=== PATIENT | female | born 1965 | race Caucasian/White ===

== ENCOUNTER → 2022-02-09 | Day surgery (SDC) | payer SELFPAY, OTHER | END | disposition home or self-care (01) | LOC: PAT 05-09 14:08 | PROVIDERS: PCP Family Medicine; Referring Provider Student in an Organized Health Care Education/Training Program; Visit Provider Student in an Organized Health Care Education/Training Program | DX: Z01.818 Encounter for other preprocedural examination (principal) ==

== ENCOUNTER 2022-02-14 16:50 | Observation (INO) | payer SELFPAY, OTHER ==
[2022-02-14 14:39] VITALS: BP 160/80; PULSE 125; RESP 18; TEMP 36.6; O2SAT 99; BMI 35.6
--- NOTE | 2022-02-14 18:07 | PCM.HP.STD ---
HPI - General General Date of Admission: 02/14/22 HPI Narrative JACKELYN ANGEL, is a 56 F seen in the outpatient setting for pathologic right humeral shaft fracture sustained 01/17/2022. She has been evaluated and diagnosed with multiple myeloma. She follows with an oncologist, Dr. Tracy. I saw the patient in the outpatient setting. I recommended surgical intervention in the form of right humeral intramedullary nailing. Surgery was scheduled for 02/15/2022. Preoperative evaluation revealed abnormal electrolytes with a significant hyperkalemia. I recommended admission for further work-up and treatment to optimize her electrolytes prior to surgery in hopes to avoid delaying timely treatment of her fracture. At time of my examination patient states her pain is adequately controlled in her right humerus. She denies any fevers, chills, nausea or vomiting, chest pain, shortness of breath, palpitation, abdominal pain, constipation or diarrhea. [facility] Medical History Anemia Cancer Leg cramps Multiple myeloma Non-smoker Thyroid nodule Wears glasses Home Medications acyclovir 400 mg tablet 400 mg PO BID 02/09/22 [History Last Taken Unknown] apixaban 2.5 mg tablet (Eliquis) 2.5 mg PO BID 02/09/22 [History Last Taken Unknown] aspirin 81 mg tablet,delayed release 81 mg PO DAILY 02/09/22 [History Last Taken Unknown] Allergy/AdvReac Type Severity Reaction Status Date / Time No Known Allergies Allergy Verified 02/14/22 14:39 Surgical History (Updated 02/09/22 @ 11:17 by Yola Martinez) History of left hip replacement Social History Smoking Status: Never smoker ROS ROS Narrative 12 point review of systems obtained, negative unless otherwise noted HPI. Vital Signs Vital Signs Vital Signs: 02/14/22 14:39 Temperature 97.8 F Temperature Source Temporal Pulse Rate 125 H Respiratory Rate 18 Blood Pressure 160/80 H Blood Pressure Mean 106 Pulse Ox 99 Oxygen Delivery Method Room Air Weight Weight: 201 lb 3.2 oz Body Mass Index (BMI) 35.6 Physical Exam Narrative General -A&Ox3, NAD, appears stated age. Vital signs stable, afebrile. Respiratory -normal work of breathing, no intercostal retractions. CV -pulses regular, brisk capillary refill ?4 limbs. Abdomen-soft, nontender, nondistended. No guarding, rigidity, rebound tenderness. Musculoskeletal/neurologic -full range of motion nontender throughout bilateral lower extremities, left upper extremity with full sensation and strength in all dermatomes and myotomes. No midline cervical tenderness. Right upper extremity-posterior splint in place, clean dry and intact. Cardinal motions right hand are intact. Motor intact in axillary, musculocutaneous, radial, ulnar, and median nerve distributions. Sensation intact in all dermatomes of the right upper extremity. Radial pulses 2+ brisk upper refill in the fingertips. Results Lab / Micro Data Labs: Laboratory Results - last 24 hr 02/14/22 13:16: TSH Cancelled, Free T4 Cancelled Assessment & Plan Assessment/Plan (1) Pathological fracture, right humerus, sequela: PLAN: Plan for surgery tomorrow as previously scheduled. Patient admitted for preoperative hyperkalemia. CBC and BMP ordered. If hyperkalemic, medical consult planned this evening. N.p.o. after midnight Maintenance IV fluids ordered
[2022-02-14 19:09] LABS: Absolute Lymphocyte Count 1.02 X10^3/uL (0.83-4.51); Absolute Neutrophil Count 3.3 X10^3/uL (2.0-7.7); Basophil# 0.02 X10^3/uL; Basophil% 0.4 % (0-1); Eosinophil# 0.01 X10^3/uL; Eosinophils% 0.2 % (0-5); Hematocrit 29.5 % (37-47); Hemoglobin 9.5 g/dL (12.0-15.0); Lymphocyte # 1.02 X10^3/ul (0.83-4.51); Lymphocyte % 21.3 % (19-41); Mean Corp Hgb Conc 32.2 g/dL (32-36); Mean Corpuscular Hgb 29.9 pg (27.0-32.0); Mean Corpuscular Volume 92.8 fL (81-99); Mean Platelet Vol. 9.7 fl (6.2-12.0); Monocyte# 0.48 X10^3/uL; NRBC Flagged by Analyzer 0 % (0-5); Neutrophil # 3.26 X10^3/uL (2.7-7.7); Neutrophil % 67.9 % (47-70); Platelet Count 251 K/mm3 (150-450); RBC Distribution Width SD 51.5 fl (35.1-43.9); Red Blood Count 3.18 M/mm3 (4.2-5.4); White Blood Count 4.8 K/mm3 (4.4-11.0)
[2022-02-14] MEDS: 0.9% Normal Saline 1,000 ML 125 ML IV (19:09)
[2022-02-14 19:14] VITALS: BP 138/75; PULSE 107; RESP 16; TEMP 37.3; O2SAT 95
[2022-02-14 19:23] LABS: Anion Gap 6 (5-15); BUN 14 mg/dL (7-18); BUN/Creat Ratio 15.4 RATIO (10-20); Calcium,Total 8.4 mg/dL (8.5-10.1); Chloride 102 mmol/L (98-107); Creatinine, Serum 0.91 mg/dL (0.55-1.02); EST Glomerular Filtration Rate 68 mL/min (>60); Est Glom Filt Rate - Afr Amer 82 mL/min (>60); Estimated Creatinine Clearance 57.78 ml/min; Glucose 111 mg/dL (74-106); Potassium 4.4 mmol/L (3.5-5.1); Sodium Level 134 mmol/L (136-145)
[2022-02-14 20:00] VITALS: BMI 35.3
[2022-02-14] MEDS: MELATONIN 10 MG TABLET 5 MG PO (21:16)
[2022-02-14] MEDS: Acetaminophen 500 MG Tablet 1000 MG PO (21:16)
[2022-02-15] VITALS (17 sets, daily range): BP systolic 132–174; BP diastolic 63–87; PULSE 98–108; RESP 16–18; TEMP 36.6–37.3; O2SAT 92–99; BMI 35.3
--- NOTE | 2022-02-15 | SHO_PTH ---
PATIENT: JACKELYN ANGEL LOC: MS3 U#:[id number] AGE/SX: 56/F ROOM: DE311 RE02/14/[address]: Dr. Paul De Los Santos DO : 1965 BED: 1 DIS: 02/16/2022 SPEC #: [id number] RECD: 02/15/22 13:08 STATUS: ANAM MICHEAL #: [id number] RAMONA: 02/15/22 00:[address]: Paul De Los Santos DEPT: SURGICAL PATHOLOGY RECD BY: Temo Leonard ENTERED: 02/15/22 13:09 SP TYPE: HUMERUS OTHR DR: Dr. 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 See comment. KIERRA:vikki 02/18/2022 COMMENT Immunohistochemistry ([id number]) supports the above diagnosis. Clinical correlation and appropriate follow up are necessary. Case has been reviewed in consultation with Dr. Goldman who concurs with the above diagnosis. IDC:AM MICROSCOPIC DESCRIPTION Slides are reviewed. GROSS DESCRIPTION Received in fixative is one container labeled with the patient's name and designated right humeral reamings. The specimen consists of multiple fragments of bone reamings that in aggregate measure 2.5 x 2 x 0.2 cm. The specimen is totally submitted in one cassette after decalcification. / KIERRA:vikki 02/15/2022 TC:0 CPT: 29090, 58648
--- NOTE | 2022-02-15 | IMM_PTH ---
PATIENT: JACKELYN ANGEL LOC: MS3 U#:[id number] AGE/SX: 56/F ROOM: ME311 RE02/14/[address]: Dr. Paul De Los Santos DO : 1965 BED: 1 DIS: 02/16/2022 SPEC #: [id number] RECD: 02/18/22 13:02 STATUS: ANAM REYesi #: [id number] RAMONA: 02/15/22 00:[address]: Paul De Los Santos DEPT: IMMUNOHISTOCHEMISTRY RECD BY: Fabi Ludwig ENTERED: 02/18/22 13:04 SP TYPE: IMMUNO OTHR DR: Dr. Ilene Wiseman DO Tissues: Humerus, NOS Procedures: CD138 (add) CD45 (add) CK8 (add) KAPPA (add) LAMBDA (add) Vimentin (add) Pankeratin (initial) PHYSICIAN & INSTITUTION [place] [id number] SPECIMEN INFORMATION: Tissue Source: Right humeral reamings Clinical Info: Pathological fracture right humerus Specimen Number: [id number] CPT code: 70271, 87424 x6 METHODOLOGY: Deparaffinized sections of prefer/formalin-fixed tissue or PAP/DQ stained slides are incubated with monoclonal/polyclonal antibodies/oligonucleotide probes. Localization is made via biotin free immunoperoxidase method. Appropriate controls are performed and reacted as expected. Results on target cell population are indicated in the following table: RESULTS: ANTIBODY / CLONE RESULT AE1-3 (AE1/AE3/PCK26) negative CK8 (21rmeiL67) negative CD45 (RP2/18) negative CD138 (B-A38) positive [place] (polyclonal) positive Lambda (polyclonal) negative Vimentin (V9) positive These tests were developed and their performance characteristics determined by [facility]. They may not have been cleared or approved by the U.S. Food and Drug Administration. The FDA has determined that such clearance or approval is not necessary. The above immunohistochemical/dualISH markers are ordered and reviewed by the Pathologist. INTERPRETATION: Right humeral reamings: Consistent with involvement by plasma cell neoplasm, multiple myeloma/ plasmacytoma with kappa monoclonality. See comment. KIERRA:vikki 02/21/2022 Comment: Clinical correlation is necessary. Case has been reviewed in consultation with Dr. Goldman who concurs with the above diagnosis. IDC:AM
[2022-02-15] MEDS: 0.9% Normal Saline 1,000 ML 125 ML IV (02:50)
--- NOTE | 2022-02-15 05:00 | EKG12_ITS ---
Test Reason : AM EKG Blood Pressure : / mmHG Vent. Rate : 102 BPM Atrial Rate : 102 BPM P-R Int : 144 ms QRS Dur : 078 ms QT Int : 322 ms P-R-T Axes : 048 037 020 degrees QTc Int : 419 ms Sinus tachycardia Otherwise normal ECG No previous ECGs available Confirmed by GRETCHEN RITCHIE, NOLAN ([id number]), newspaper editor STEPHANIE GAGE ([id number]) on 02/16/2022 9:27:35 AM Referred By: ASHWIN Confirmed By:NOLAN GODINEZ MD
[2022-02-15] MEDS: Lactated Ringers 1,000 ML 15 ML IV (06:09)
--- NOTE | 2022-02-15 06:30 | RAD_ITS ---
STUDY: X-RAY - RIGHT HUMERUS REASON FOR EXAM: Female, 56 years old. Intraoperative digital documentation views of the intramedullary peter placement. TECHNIQUE: 5 intraoperative digital view(s) of the humerus. COMPARISON: None. FINDINGS: 5 intraoperative digital documentation views show placement of intramedullary peter and proximal and distal interlocking horizontal screws in the right humerus Anatomic alignment with no complications identified . RAD/Humerus min 2 Views IMPRESSION: Intraoperative digital documentation views as described. Electronically Signed: John Avendano, at 9:38 EST ,
[2022-02-15 06:35] LABS: Absolute Neutrophil Count 2.1 X10^3/uL (2.0-7.7); Basophil# 0.01 X10^3/uL; Basophil% 0.3 % (0-1); Eosinophil# 0.02 X10^3/uL; Eosinophils% 0.6 % (0-5); Hematocrit 25.6 % (37-47); Hemoglobin 8.2 g/dL (12.0-15.0); Lymphocyte % 21.7 % (19-41); Mean Corpuscular Hgb 29.9 pg (27.0-32.0); Mean Corpuscular Volume 93.4 fL (81-99); Mean Platelet Vol. 9.8 fl (6.2-12.0); Monocyte# 0.44 X10^3/uL; Monocyte% 13.6 % (0-10); NRBC Flagged by Analyzer 0.6 % (0-5); Neutrophil # 2.05 X10^3/uL (2.7-7.7); Neutrophil % 63.5 % (47-70); Platelet Count 210 K/mm3 (150-450); RBC Distribution Width CV 15.3 % (11.6-14.6); RBC Distribution Width SD 52.2 fl (35.1-43.9); Red Blood Count 2.74 M/mm3 (4.2-5.4); White Blood Count 3.2 K/mm3 (4.4-11.0)
[2022-02-15 06:43] LABS: International Normalized Ratio 1.2; Prothrombin Time (Protime)PT. 14.4 SECONDS (11.7-14.9)
[2022-02-15 06:44] LABS: Partial Thromboplast Time 27.9 Seconds (24.1-36.2)
[2022-02-15] MEDS: Cefazolin 2 GM in 0.9% Normal Saline 100 ML IV (07:45)
[2022-02-15] MEDS: Lactated Ringers 1,000 ML 100 ML IV ×3 (09:00→23:10)
--- NOTE | 2022-02-15 09:39 | PCM.OPRPT ---
Report of Operation Date of Procedure: 02/15/22 Description of Surgical Findings:: Preoperative diagnosis: Right pathologic humeral shaft fracture Postoperative diagnosis: Right pathologic humeral shaft fracture Procedure: Antegrade intramedullary nailing right humerus Surgeon: Paul De Los Santos DO Natural Resources Engineer: LUCRECIA Wilcox Anesthesia: General endotracheal Anesthesiologist: Dr. Naik Complications: None Drains: None Estimated blood loss: 75 cc Urinary output: None IV fluids: 700 cc crystalloid Specimens: Right humeral intramedullary reamings Surgical implants: Xiomara T2 humeral nail 7 x 230 mm, locking screw fully threaded 4 mm by diameters 45, 36, 24, 24 Surgical indications: JACKELYN ANGEL, is a 56 F seen in the outpatient setting for pathologic right humeral shaft fracture sustained 01/17/2022. She has been evaluated and diagnosed with multiple myeloma. She follows with an oncologist, Dr. Tracy. I saw the patient in the outpatient setting. I recommended surgical intervention in the form of right humeral intramedullary nailing due to risk of nonunion and further prophylaxis of the remainder of the humerus. We discussed the risks, benefits, alternatives to the procedure. The risks include but are not limited to bleeding, infection, loss of life or limb, risk of anesthesia, risk of nerve injury, persistent pain, nonunion, malunion, need for additional surgery, failure of orthopedic hardware, wound complication, DVT or PE symptomatic hardware. Patient expressed understanding of these risks and wished to proceed. Description of procedure: Patient was seen in preoperative holding area. She was identified by name, medical record number, date of . The operative extremity was marked with a surgical marker. We confirmed informed consent with the patient and all questions were answered to her satisfaction. Anesthesia consent was also obtained by the anesthesia team prior to procedure. An interscalene block was administered in the preoperative holding area by anesthesia staff. At time of her procedure, patient was brought to the operative suite and positioned supine on a flat Sree radiolucent table. All bony prominences were well-padded. General anesthesia was then induced and endotracheal tube placed. After the tube was secured in adequate anesthesia, we turned our attention to the right arm. A bump was placed under the patient's right scapula. I brought in the C arm to ensure adequate AP and lateral projections which were achieved. We then prepped and draped the right upper extremity in normal, sterile orthopedic fashion. We performed a timeout with all parties in attendance in agreement with the side, site, operation to be performed. 2 g Ancef was administered prior to incision by anesthesia staff. No concerns were voiced and we elected to proceed. I brought in C arm to identify the plan starting point just medial to the insertion of the supraspinatus footprint in line with humeral shaft. Longitudinal 2 cm incision was made along the anterior border of the acromion. I bluntly dissected down the level of the deltoid fascia. Deltoid fascia was split sharply with a 15 blade scalpel. I bluntly dissected through the muscle fibers atraumatically. Subdeltoid bursa was encountered and opened with a Bustamante elevator. The bursal side of the supraspinatus was encountered. I then split the supraspinatus tendon in longitudinal fashion and tagged the ends with an 0 Vicryl suture for later repair. I then utilized a C arm to position our starting pin at the medial aspect of the supraspinatus footprint in line with the long axis of the humerus on the lateral. Starting pin was introduced and driven past the humeral neck. Opening reamer that was then utilized and pin and reamer were removed. Ball-tipped guidewire was introduced through the commercial airplane pilot hole and taken down to level of the olecranon fossa. I measured for a 230 mm humeral nail. We sequentially reamed to a final diameter of 8.5 mm and reamings were sent for pathologic analysis due to history of multiple myeloma. The humeral nail was opened on the back table and assembled to the insertion jig. I then placed the humeral nail by hand to an appropriate depth. I then utilized the jig to make a 2 cm incision in the planned trajectory of the 2 transverse proximal interlocking screws. I bluntly dissected through the deltoid fascia down to level of bone. Trochars were introduced down the level of the bone. I drilled unit cortically for the proximal screw and bicortically for the more distal screw and screws were placed after appropriate measurements were taken with a depth gauge. Adequate bony purchase was felt with the proximal screw and excellent bicortical purchase with the more distal screw. I then turned my attention distally. I first placed an anterior posterior distal interlocking screw hole. I utilized perfect hopi technique. A 1 cm incision was made proximal to the antecubital fossa. I bluntly dissected through the muscle down to level bone to ensure no injury to the median nerve or vessel.. Trocar was introduced down to level bone. I then drilled bicortically. Appropriately sized screw was placed with excellent bicortical purchase. In similar fashion, a lateral to medial bicortical interlocking screw was placed with excellent purchase. Blunt dissection was carried prior to drilling to avoid radial nerve injury. Final fluoroscopic images were obtained. Fracture was stable. Tip of the nail was buried. Interlocking screws were appropriately sized. Wounds were copiously irrigated with normal saline solution. A cytocide repair of the rotator cuff was performed with 3 bjvlry-jg-wnyza #2 FiberWire sutures. I closed the deltoid fascia and the proximal 2 incisions with a interrupted [id number]-[id number]-vztiy 0 Vicryl suture. Dermis of all 4 incisions was closed in standard fashion with buried 2-0 Vicryl suture and skin finally approximated ja. Sterile compression dressings were applied. Patient tolerated procedure well without apparent complication. She was safely extubated the operative suite. She was transferred to PACU in stable condition. Post Operative Plan: Will monitor the patient overnight. I will recheck an H&H this afternoon due to chronic anemia. Low threshold to transfuse given chemotherapy tomorrow. Weightbearing: Weightbearing and range of motion as tolerated operative extremity Antibiotics: Ancef 2 g x 1 dose preoperatively, 3 doses total postoperatively DVT Prophylaxis: Early ambulation, restart home Eliquis 2.5 mg, SCDs Velazquez: None Dressing: Maintain dressing x3 days, then okay to remove and shower. Sling for comfort. X-Rays: 2 weeks postop in the office Pain Medication: Patient has [place] at home we will utilize postoperatively Follow-up: 2 weeks post-operatively with me in the office as previously scheduled
--- NOTE | 2022-02-15 13:55 | CASEMGMT ---
RN CM LATIN DANCER CM to room to meet with patient for initial transition planning/care coordination assessment. RN NATHAN introduced self and role at [facility]. Pt voices understanding and consents to assessment at this time. Pt resting in bed in no distress at this time. @ bedside. Pt is A/O at this time and answers all questions appropriately. Care providers, pharmacy, and demographics verified/updated at this time. PCP: Dr Ilene Wiseman Specialists: Dr Jw Tracy @ [facility] onc/hematology. Pt states has an appt scheduled w/him tomorrow and plans to go straight there from [facility] tomorrow when discharged. Dr De Los Santos-aj Preferred Pharmacy: [facility] Retail Insurance: [employer] Prescription Benefit: no Living Will/HPOA: Has LW, but does not have HCPOA. Made aware SW can assist w/completing or this can be done as Out-pt. Pt states is not interested in completing at this time. LNOK: . 6 children Living Arrangements: Lives w/ and 3 children live w/them-ages 14, 15, and 21. They live in a 2-story home w/basement w/4 steps to enter home w/railing on both sides. FFSU. Pt independent prior to fracture. Family able to assist. Transportation: Hire drivers DME: Has sling for right arm. Denies using any other DME and denies needs. Has a walker, if needed, and has access to other DME if would need. HHC/SNF: No hx of SNF. Had HHC in the past after hip surgery in Oct, 2021 through [facility]. PT's name is Britt Metz. Pt denies need for HHC or therapy at this time. Pt wishes to return home and states has no concerns with going home at time of discharge. CM to follow for any discharge planning/needs. Advised pt and to ask for CM if any questions/concerns/needs arise. Voices understanding. PLAN: Home w/family support and discharge plans in place. Thaddeus PERDOMO RN, CM
[2022-02-15] MEDS: Acyclovir 200 MG Capsule 400 MG PO ×2 (14:24→22:08)
[2022-02-15] MEDS: Acetaminophen 500 MG Tablet 1000 MG PO ×2 (14:25→22:08)
[2022-02-15 15:03] LABS: Hematocrit 26.7 % (37-47); Hemoglobin 8.5 g/dL (12.0-15.0); Mean Corp Hgb Conc 31.8 g/dL (32-36); Mean Corpuscular Hgb 29.7 pg (27.0-32.0); Mean Corpuscular Volume 93.4 fL (81-99); Mean Platelet Vol. 9.8 fl (6.2-12.0); Platelet Count 227 K/mm3 (150-450); RBC Distribution Width CV 15.2 % (11.6-14.6); RBC Distribution Width SD 52.2 fl (35.1-43.9); Red Blood Count 2.86 M/mm3 (4.2-5.4); White Blood Count 5.2 K/mm3 (4.4-11.0)
[2022-02-15] MEDS: Cefazolin 1 GM/50 ML BAG IV ×2 (16:18→23:10)
[2022-02-15] MEDS: oxyCODONE 5 MG Tablet PO (20:06)
[2022-02-15] MEDS: MELATONIN 10 MG TABLET 5 MG PO (22:08)
[2022-02-16] VITALS: BP 133/75; PULSE 98; RESP 16; TEMP 36.9; O2SAT 95
[2022-02-16 04:18] VITALS: BP 131/77; PULSE 98; RESP 18; TEMP 36.7; O2SAT 96
[2022-02-16] MEDS: Levothyroxine 50 MCG Tablet PO (04:27)
[2022-02-16] MEDS: oxyCODONE 5 MG Tablet PO ×2 (04:27→09:44)
[2022-02-16] MEDS: Acetaminophen 500 MG Tablet 1000 MG PO (04:28)
[2022-02-16 05:23] VITALS: BP 131/77; PULSE 98; RESP 18; TEMP 36.7; O2SAT 96
[2022-02-16 06:48] LABS: Hematocrit 22.8 % (37-47); Hemoglobin 7.6 g/dL (12.0-15.0); Mean Corp Hgb Conc 33.3 g/dL (32-36); Mean Corpuscular Hgb 30.8 pg (27.0-32.0); Mean Corpuscular Volume 92.3 fL (81-99); Mean Platelet Vol. 9.4 fl (6.2-12.0); Platelet Count 210 K/mm3 (150-450); RBC Distribution Width SD 50.5 fl (35.1-43.9); Red Blood Count 2.47 M/mm3 (4.2-5.4); White Blood Count 3.4 K/mm3 (4.4-11.0)
[2022-02-16 07:23] VITALS: BP 130/78; PULSE 96; RESP 18; TEMP 36.7; O2SAT 97
[2022-02-16] MEDS: Aspirin E.C. 81 MG Tablet PO (07:30)
--- NOTE | 2022-02-16 07:31 | PCM.PN.ORT ---
Subjective Subjective Patient seen and examined. Denies any complaints. Pain is controlled with current pain regimen. Denies fevers, chills, nausea vomiting, chest pain or shortness of breath. Objective Data Objective Data Vital Signs: Vital Signs Temp Pulse Resp BP Pulse Ox O2 Del Method 98.0 F 96 18 130/78 H 97 Room Air 02/16/22 07:23 02/16/22 07:23 02/16/22 07:23 02/16/22 07:23 02/16/22 07:23 02/16/22 07:23 Oxygen Delivery Method Room Air Weight: 199 lb 4.766 oz Body Mass Index (BMI) 35.3 Intake & Output: Intake and Output for Last 24 Hours 02/14/22 02/15/22 02/16/22 23:59 23:59 23:59 Intake Total 3917.92 / 3917.92 820 / 820 Balance 3917.92 / 3917.92 820 / 820 Lab / Micro Data Result Diagrams: 02/16/22 06:05 02/14/22 19:00 Labs: Laboratory Results - last 24 hr 02/15/22 10:00: Blood Type A POSITIVE, Antibody Screen POSITIVE H, Antibody Identification WARM AUTOANTIBODY 02/15/22 14:22: WBC 5.2, RBC 2.86 L, Hgb 8.5 L, Hct 26.7 L, MCV 93.4, MCH 29.7, MCHC 31.8 L, RDW Std Deviation 52.2 H, RDW Coeff of Jordan 15.2 H, Plt Count 227, MPV 9.8 02/16/22 06:05: WBC 3.4 L, RBC 2.47 L, Hgb 7.6 L, Hct 22.8 L, MCV 92.3, MCH 30.8, MCHC 33.3, RDW Std Deviation 50.5 H, RDW Coeff of [place] 15.0 H, Plt Count 210, MPV 9.4 Radiography Diagnostic Testing: Radiology Impression Humerus X-Ray 02/15/22 06:30 IMPRESSION: Intraoperative digital documentation views as described. Electronically Signed: John Avendano, at 9:38 EST , Physical Exam Narrative General - A&Ox3, NAD. VSS/AF. Right upper Extremity - SILT & 5/5 in radial, ulnar, musculocutaneous, axillary, and median nerve distributions. Radial, ulnar pulses 2+. Compartments soft and compressible. BCR in finger tips. Incisional dressings C/D/I. Assessment & Plan Assessment/Plan (1) Pathological fracture, right humerus, sequela: PLAN: POD#1 s/p right humerus IMN - Pain control - OT -weightbearing, range of motion as tolerated right upper extremity - DVT PPX -restart home Eliquis today, SCDs, early mobilization - Plan for discharge home today. Patient has outpatient chemotherapy infusion. She will need a follow-up H&H given her chronic anemia
--- NOTE | 2022-02-16 07:33 | DS.PCM_ITS ---
Providers Date of Admission: 02/14/22 Primary Care Physician: Dr. Ilene Wiseman DO Reason For Visit: RIGHT HUMERUS FRACTURE, ABNORMAL LABS Diagnosis Discharge Diagnosis (1) Pathological fracture, right humerus, sequela: Status: Acute Code(s): M84.421S - Pathological fracture, right humerus, sequela Plan: POD#1 s/p right humerus IMN - Pain control - OT -weightbearing, range of motion as tolerated right upper extremity - DVT PPX -restart home Eliquis today, SCDs, early mobilization - Plan for discharge home today. Patient has outpatient chemotherapy infusion. She will need a follow-up H&H given her chronic anemia Medications at Discharge Home Medications acyclovir 400 mg tablet 400 mg PO BID shingles 02/09/22 apixaban 2.5 mg tablet (Eliquis) 2.5 mg PO BID blood thinner 02/09/22 aspirin 81 mg tablet,delayed release 81 mg PO DAILY blood thinner 02/09/22 levothyroxine 50 mcg tablet 50 mcg PO DAILY thyroid 02/14/22 melatonin 5 mg tablet 5 mg PO QHS PRN Sleep 02/14/22 Hospital Course Summary of Care Provided Minutes Spent on Discharge: 15 Hospital Course: Patient underwent uncomplicated right humerus intramedullary nailing 02/15/2022 due to pathologic fracture in the setting of multiple myeloma. She was admitted the night prior due to abnormal labs. Her potassium was normal upon admission. She tolerated the procedure well without complication. She was able be safely discharged home in stable condition postoperative day 1. Physical Exam Narrative General - A&Ox3, NAD. VSS/AF. Right upper Extremity - SILT & 5/5 in radial, ulnar, musculocutaneous, axillary, and median nerve distributions. Radial, ulnar pulses 2+. Compartments soft and compressible. BCR in finger tips. Incisional dressings C/D/I. Weight / BMI Weight Weight: 199 lb 4.766 oz Body Mass Index (BMI) 35.3 ABG / Lab / Microbiology Data Result Diagrams: 02/16/22 06:05 02/14/22 19:00 Laboratory: Laboratory Results - last 24 hr 02/15/22 10:00: Blood Type A POSITIVE, Antibody Screen POSITIVE H, Antibody Identification WARM AUTOANTIBODY 02/15/22 14:22: WBC 5.2, RBC 2.86 L, Hgb 8.5 L, Hct 26.7 L, MCV 93.4, MCH 29.7, MCHC 31.8 L, RDW Std Deviation 52.2 H, RDW Coeff of [place] 15.2 H, Plt Count 227, MPV 9.8 02/16/22 06:05: WBC 3.4 L, RBC 2.47 L, Hgb 7.6 L, Hct 22.8 L, MCV 92.3, MCH 30.8, MCHC 33.3, RDW Std Deviation 50.5 H, RDW Coeff of [place] 15.0 H, Plt Count 210, MPV 9.4 Radiography Diagnostic Testing: Radiology Impression Humerus X-Ray 02/15/22 06:30 IMPRESSION: Intraoperative digital documentation views as described. Electronically Signed: John Avendano, at 9:38 EST , Meaningful Use Info Meaningful Use Diagnoses (Choose all that apply): None applicable Discharge Plan Admission Admit Date/Time: 02/14/22 16:50 Primary Reason for Your Visit: Right humerus fixation Attending Provider: Paul De Los Santos Primary Care Provider: Ilene Wiseman Instructions Additional Instructions / Restrictions: Follow preprinted instructions from your surgeons office. Discharge Orders/Prescriptions Prescriptions: Continued acyclovir 400 mg tablet 400 mg PO BID Label Comments: TAKE ONE TABLET BY MOUTH TWICE DAILY aspirin 81 mg tablet,delayed release (DR/EC) 81 mg PO DAILY Label Comments: TAKE ONE TABLET BY MOUTH DAILY Eliquis 2.5 mg Tablet 2.5 mg PO BID levothyroxine 50 mcg tablet 50 mcg PO DAILY Label Comments: Take 1 tablet by mouth once daily. melatonin 5 mg Tablet 5 mg PO QHS PRN (Reason: Sleep) Other Ambulatory Orders: CBC W/Diff, Automated (Routine) Timeframe: 2 Days Facility: [facility] - Location: Laboratory Ordered By: Dr. Paul De Los Santos Referrals / Follow Up: Paul De Los Santos DO [Med Staff - Active Staff] - 02/28/22 Ilene Wiseman DO [Primary Care Provider] - Disposition Disposition (needs filled in before D/C Order can be placed): Home, Self Care
[2022-02-16] MEDS: APIXABAN 2.5 MG TABLET (WCH) PO (09:03)
[2022-02-16] MEDS: Acyclovir 200 MG Capsule 400 MG PO (09:03)
[2022-02-16 10:10] VITALS: BP 145/73; PULSE 100; RESP 18; TEMP 36.6; O2SAT 96
== END 2022-02-16 10:18 | disposition home or self-care (01) ==
PROVIDERS: Anesthesiology; Admitting Provider Student in an Organized Health Care Education/Training Program; PCP Family Medicine; Visit Provider Student in an Organized Health Care Education/Training Program
PROC: (CPT 24516; principal; 2022-02-15 07:10)
DX: M84.421A Pathological fracture, right humerus, initial encounter for fracture (principal); C90.00 Multiple myeloma not having achieved remission; E87.5 Hyperkalemia; Z79.899 Other long term (current) drug therapy; Z79.82 Long term (current) use of aspirin; Z79.01 Long term (current) use of anticoagulants; Z79.890 Hormone replacement therapy
CPT/HCPCS: 24516; 01630; 64415; 36415; 73060; 76000; 80048; 84443; 85025; 85027; 85610; 85730; 86850; 86870; 86900; 86901; 88305; 88311; 88341; 88342; 93005; 96361; 96365; 96366; 99218; 99251; C1776; J7030; J7120; G0378; G0463; J2405